=== PATIENT | female | born 1960 | race Caucasian/White ===

== ENCOUNTER 2024-05-13 10:25 | Emergency (ER) | payer SELFPAY ==
[~2024-05-13] VITALS: Ht 167.6 cm; Wt 99.8 kg
[~2024-05-13 10:25] MED LIST: LANS30CA54 PO
[2024-05-13] MEDS ORDERED: HYDR-3980 PO (14:51)
[2024-05-13 15:23] VITALS: BP 143/70; O2SAT 98
== END 2024-05-13 15:24 | disposition home or self-care (01) ==
LOC: ER 10:25
DX: M54.50 Low back pain, unspecified (principal); M54.2 Cervicalgia; E88.810 Metabolic syndrome; E66.9 Obesity, unspecified; E11.9 Type 2 diabetes mellitus without complications; K21.9 Gastro-esophageal reflux disease without esophagitis; Z90.49 Acquired absence of other specified parts of digestive tract; Z79.899 Other long term (current) drug therapy; Z68.35 Body mass index [BMI] 35.0-35.9, adult; Z60.2 Problems related to living alone; Z88.5 Allergy status to narcotic agent; Z88.6 Allergy status to analgesic agent; W18.30XA Fall on same level, unspecified, initial encounter; Y93.9 Activity, unspecified; Y92.9 Unspecified place or not applicable; Y99.9 Unspecified external cause status
CPT/HCPCS: 72072; 72110; A4606; A4663